=== PATIENT | male | born 1960 | race Caucasian/White ===

== ENCOUNTER 2017-06-13 11:49 | Emergency (ER) | payer BC ==
[2017-06-13 12:19] VITALS: BP 130/85
--- NOTE | 2017-06-13 12:59 | UC ---
Skin Complaint HPI - HPI Summary HPI Summary: 56 year old male with skin complaint. RIGHT MIDDLE FINGER AND RIGHT THUMB PAIN. PT HAS CRACKED DRY SKIN OF ALL HIS FINGERS ALL WINTER. HAS TWO AREAS , ONE RIGHT MIDDLE FINGER AND RIGHT THUMB THAT ARE RED, SWOLLEN AND VERY PAINFUL. HAS BEEN USING AMONIUM LACTATE 12% CREAM PRESCRIBED BY HIS PCP. Washes hands a lot which often leads to cracked skin on fingers. Concern for skin infection due to the finger pain and redness. no discharge. [ End ] - History of Current Complaint Chief Complaint: UCSkin Time Seen by Provider: 06/13/17 12:56 Stated Complaint: RT HAND MID FINGER PAIN Hx Obtained From: Patient Onset/Duration: Gradual Onset Timing: Constant Onset Severity: Moderate Current Severity: Moderate Aggravating Factor(s): Wind, Showering Alleviating Factor(s): OTC Creams/Salves - Allergy/Home Medications Allergies/Adverse Reactions: Allergies Allergy/AdvReac Type Severity Reaction Status Date / Time No Known Allergies Allergy Verified 06/13/17 12:09 Review of Systems Skin: Other - dry cracked skin Is Patient Immunocompromised?: No All Other Systems Reviewed And Are Negative: Yes PMH/Surg Hx/FS Hx/Imm Hx Previously Healthy: Yes GI/ History: Other Other GI/ History: bph Psychological History: Anxiety, Depression - Surgical History Surgical History: None - Family History Known Family History: Positive: Cardiac Disease, Hypertension Negative: Diabetes - Social History Occupation: Employed Full-time Alcohol Use: None Substance Use Type: None Smoking Status (MU): Heavy Every Day Tobacco Smoker Type: Cigarettes Amount Used/How Often: 1 PPD Length of Time of Smoking/Using Tobacco: 35 Years Have You Smoked in the Last Year: Yes Household Exposure Type: Cigarettes Cessation Counseling: Patient Advised to Stop Physical Exam Triage Information Reviewed: Yes Appearance: Well-Appearing, No Pain Distress, Well-Nourished Vital Signs: Initial Vital Signs Temp 97.7 F 06/13/17 12:10 Pulse 68 06/13/17 12:10 Resp 18 06/13/17 12:10 BP 130/85 06/13/17 12:10 Pulse Ox 97 06/13/17 12:10 Vital Signs Reviewed: Yes Respiratory Exam: Normal Cardiovascular Exam: Normal Musculoskeletal Exam: Normal Neurological Exam: Normal Psychological Exam: Normal Skin Exam: Normal Skin: Positive: breakdown - right middle finger with crack through the dermis with mild erythema and redness proximal to this on the palmar aspect of finger. tenderness diffusely of the finger. no streaking. no discharge. no ecchymosis. also breakdown / crack in the right thumb and left middle finger Course/Dx - Course Course Of Treatment: Advise to moisturize more frequently. Quit Smoking. Start cephalexin to prevent worsening of redness/ infection and ensure no pulp space infection begins. if pain / redness worsens or goes in to the pulp space and I did show him and then they will go to ED if this happens. - Differential Diagnoses - Skin Complaint Differential Diagnoses: Contact Dermatitis, Local Allergic Reaction - Diagnoses Provider Diagnoses: right middle finger cellulitis Discharge - Discharge Plan Condition: Good Disposition: HOME Prescriptions: Cephalexin CAP* [Keflex 500 CAP*] 500 mg PO TID #30 cap Patient Education Materials: How to Stop Smoking (ED), Cellulitis (ED) Referrals: Christian Cartagena DO [Primary Care Provider] - 4 Days Additional Instructions: As mentioned if your symptoms persist or worsen over the next few days please seek care at the emergency room .
== END 2017-06-13 13:21 | disposition home or self-care (01) ==
LOC: UCCORT 11:49
DX: L03.011 Cellulitis of right finger (principal); F17.210 Nicotine dependence, cigarettes, uncomplicated
CPT/HCPCS: 99212; G0463